=== PATIENT | female | born 1955 | race African-American/Black ===

== ENCOUNTER 2018-01-29 09:10 | Emergency (ER) | payer OTHER ==
[~2018-01-29] VITALS: Ht 160 cm; Wt 65.8 kg
--- NOTE | ~2018-01-29 | EKG ---
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
[~2018-01-29 09:10] MED LIST: ACETAMINOPHEN325 M1 PO; ADULT LOW DOSE81 MG PO; ALDACTONE25 MG PO; APAP/CODEINE ELI5 M1 OR; APAP500 PO; ASPIRIN81 M2 PO; ATENOLOL 25 MG25 M1 PO; CODEINE-GUAIFE120 ML PO; COLACE100 MG PO; DILTIAZEM 24HR420 MG PO; DILTIAZEM ER120 M1 PO; DILTIAZEM IR PO; HYDROCHLOROTH12.5 MG PO; HYDROCHLOROTHIA25 M1 PO; KLOR-CON 10 ER10 MEQ PO; KLOR-CON 1010 MEQ PO; LEVOTHROID100 MC1 PO; LISINOPRIL20 MG PO; LOVASTAT20 PO; MECLIZINE HCL12.5 MG PO; MEDROLDOSEPACK PO; MEVACOR40 MG PO; NAPROSYN500 MG PO; NORVASC10 MG PO; PERCOCET 7.5-31 EACH PO; SENNA-LAX8.6 MG PO; VENTOLIN HFA 1818 GM INH; ZOFRAN ODT4 MG PO; ZPAK PO
[2018-01-29 09:47] LABS: URINE BILIRUBIN NEGATIVE (Negative); URINE BLOOD NEGATIVE (Negative); URINE CLARITY CLEAR; URINE COLOR YELLOW; URINE GLUCOSE-RANDOM* NEGATIVE (Negative); URINE KETONES NEGATIVE (Negative); URINE LEUKOCYTES NEGATIVE (Negative); URINE NITRITE NEGATIVE (Negative); URINE PROTEIN (DIPSTICK) NEGATIVE (Negative); URINE SPECIFIC GRAVITY <= 1.005 (1.005-1.035); URINE UROBILINOGEN 0.2 E.U./dl (0.2-1.0)
[2018-01-29] MEDS ORDERED: LOSARTAN POTAS100 MG PO (10:45)
[2018-01-29] MEDS ORDERED: NEURONTIN600 MG PO (10:45)
[2018-01-29] MEDS ORDERED: HYDROCHLOROTHIA25 M2 PO (10:46)
[2018-01-29] MEDS ORDERED: VITAMIN B-12500 MCG PO (10:46)
[2018-01-29] MEDS ORDERED: ASPIR 8181 MG PO (10:47)
[2018-01-29] MEDS ORDERED: PEPCID20 MG PO (10:47)
[2018-01-29 11:03] LABS: BASOPHILS 0.6 % (0.0-2.0); HEMATOCRIT 41.3 % (37.0-47.0); HEMOGLOBIN 13.5 gm/dL (12.0-15.0); MCH 28.4 pg (26.0-34.0); MCHC 32.8 g/dL (28.0-37.0); MCV 86.7 fL (80.0-100.0); MONOCYTES 5.6 % (1.0-8.0); PLATELET COUNT 238 thou/uL (150-400); POLYS 69.8 % (36.0-66.0); RBC 4.76 mil/uL (4.20-5.00); RDW 14.8 % (10.5-14.5); WBC 8.6 thou/uL (4.0-11.0)
[2018-01-29 11:12] LABS: ANION GAP 7 mmol/L (7-16); BUN 26 mg/dL (7-18); CALCIUM 10.5 mg/dL (8.5-10.1); CHLORIDE 110 mmol/L (98-107); CO2 30 mmol/L (21-32); CREATININE 1.7 mg/dL (0.6-1.0); GLUCOSE 88 mg/dL (74-106); POTASSIUM 3.9 mmol/L (3.5-5.1); SODIUM 147 mmol/L (136-145)
[2018-01-29 11:20] LABS: LIPASE 310 U/L (73-393); MAGNESIUM 1.9 mg/dL (1.8-2.4); SGOT 21 U/L (15-37); SGPT 24 U/L (30-65); TOTAL BILIRUBIN 0.3 mg/dL (<0.1-1.0); TOTAL PROTEIN 8.3 g/dL (6.4-8.2); TROPONIN-I < 0.04 ng/mL (<0.06)
[2018-01-29 12:28] VITALS: BP 155/84
== END 2018-01-29 12:50 | disposition home or self-care (01) ==
LOC: ER 09:10
PROVIDERS: Nurse Practitioner Family
DX: R53.1 Weakness (principal); F41.9 Anxiety disorder, unspecified; I10 Essential (primary) hypertension; Z87.891 Personal history of nicotine dependence; Z88.6 Allergy status to analgesic agent; Z88.5 Allergy status to narcotic agent; Z90.49 Acquired absence of other specified parts of digestive tract; Z90.710 Acquired absence of both cervix and uterus